=== PATIENT | male | born 1985 | race Two or more races ===

== ENCOUNTER 2025-05-15 14:22 | Outpatient (CLI) | payer SELFPAY | END 2025-05-15 14:23 | disposition home or self-care (01) | LOC: AMB 05-16 15:19 | PROVIDERS: Visit Provider Family Medicine | DX: S09.90XA Unspecified injury of head, initial encounter (principal); S39.92XA Unspecified injury of lower back, initial encounter; V54.5XXA Driver of pick-up truck or van injured in collision with heavy transport vehicle or bus in traffic accident, initial encounter; Y92.410 Unspecified street and highway as the place of occurrence of the external cause | CPT/HCPCS: A0425; A0427 ==

== ENCOUNTER 2025-05-15 15:00 | Emergency (ER) | payer SELFPAY ==
[2025-05-15 15:07] VITALS: BP 115/74; PULSE 86; RESP 16; TEMP 36.6; O2SAT 96; BMI 18.2
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
--- OUTSIDE RECORDS SUMMARY | 2025-05-15 16:58 | XMS_ITS | Clinical Summary ---
Author Organization [facility] Address [address] [place] [id number] Care Team Providers Care Director It Project Name Role Phone No Ref-Primary, Physician Primary Care Provider Allergies No known active allergies Medications tenofovir (VIREAD) 300 MG tabletIndicatio ns:Chronic hepatitis B without delta agent with hepatic coma (H) Take 1 tablet (300 mg) by mouth daily 90 tablet 3 6 Active Additional Information Patient not taking.Reported on 10/18/2019 cyclobenzaprine (FLEXERIL) 5 MG tabletIndicatio ns:Muscle spasm Take 1-2 tablets (5-10 mg) by mouth 3 times daily as needed for muscle spasms 30 tablet 1 9 Active Additional Information Patient not taking.Reported on 12/13/2019 ibuprofen (ADVIL/MOTRIN) 600 MG tabletIndicatio ns:Cervicalgia, Acute pain of right shoulder,Right elbow pain,Acute bilateral low back pain without sciatica Take 1 tablet (600 mg) by mouth every 6 hours as needed for moderate pain 40 tablet 1 9 Active Active Problems Problem Noted Date Diagnosed Date Chronic viral hepatitis B wi thout delta agent and without coma 09/16/2015 Hepatitis B 03/24/2015 Torticollis 11/29/2014 Overview (11/29/2014): improved, banadryl prn helps Jaundice 11/20/2014 Abnormal LFTs 11/20/2014 Hepatitis 11/20/2014 Family History Medical History Relation Comments Diabetes No family hx of Social History Tobacco Use Types Packs/Day Years Used Date Smoking Tobacco: Never Smokeless Tobacco: Never Alcohol Use Standard Drinks/Week Comments No 0 (1 standard drink = 0.6 oz pur e alcohol) PHQ-2 Answer Date Recorded PHQ-2 Score 0 08/25/2020 Adolescent Education Answer Date Record ed Getting School Help Needed Not on file 08/09 Sex and Gender Information Value Date Recorded Sex Assigned at Not on file Legal 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 Gender Identity Not on file Sexual Orientation Not on file Last Filed Vital Signs Vital Sign Reading Time Taken Comments Blood Pressure 95/66 12/13/2019 8:58 AM TECHNICAL ENGINEER Pulse 68 12/13/2019 8:58 AM TECHNICAL ENGINEER Temperature 36.6 C (97.8 F) 12/13/2019 8:58 AM TECHNICAL ENGINEER Respiratory Rate 16 12/27/2018 5:42 PM TECHNICAL ENGINEER Oxygen Saturation 95% 12/13/2019 8:58 AM TECHNICAL ENGINEER Inhaled Oxygen Concentration - - Weight 53.7 kg (118 lb 6.4 oz) 12/13/2019 8:58 A M TECHNICAL ENGINEER Height 175.3 cm (5' 9) 12/13/2019 8:58 AM TECHNICAL ENGINEER Body Mass Index 17.48 12/13/2019 8:58 AM TECHNICAL ENGINEER Plan of Treatment Not on file [facility] [place] [id number] none (Work) [address] [facility] [address] [address] [place] [address] [facility] [employer] Advance Directives For more information, please contact: [phone] * Full Code (Latest Code Status on File) Date Activated Date Inactivated Comments 11/24/2014 10:06 AM 12/27/2018 5:37 PM * Full Code Date Activated Date Inactivated Comments 11/20/2014 8:42 PM 11/24/2014 10:06 AM Care Teams Director It Project Relationship Specialty Start Date End Date No Ref-Primary, Physician PCP - General 09/20/13
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
--- OUTSIDE RECORDS SUMMARY | 2025-05-16 10:12 | XMS_ITS | Clinical Summary ---
Author Organization [facility] Address [address] [place] [address] Care Team Providers Care Rn Baby Name Role Phone Pcp, No Primary Care [...] on file Legal Sex Male 2:55 PM RUG MEASURER Gender Identity Not on file Sexual Orientation Not on file Last Filed Vital Signs Vital Sign Reading Time Taken Comments Blood Pressure 104/61 10/14/2019 3:25 PM RUG MEASURER Pulse 94 10/14/2019 3:25 PM RUG MEASURER Temperature 36.9 C (98.4 F) 10/14/2019 3:25 PM RUG MEASURER Respiratory Rate 16 10/14/2019 3:25 PM RUG MEASURER Oxygen Saturation 97% 10/14/2019 3:25 PM RUG MEASURER Inhaled Oxygen Concentration - - Weight 59 kg (130 lb) 10/14/2019 3:25 PM RUG MEASURER Height 172.7 cm (5' 8) 10/14/2019 3:25 PM RUG MEASURER Body Mass Index 19.77 10/14/2019 3:25 PM RUG MEASURER Plan of Treatment Not on file Insurance [facility] [employer] Care Teams Rn Baby Relationship Specialty Start Date End Date Pcp, No . PCP - General 10/14/19
--- OUTSIDE RECORDS SUMMARY | 2025-05-16 10:13 | XMS_ITS | Clinical Summary ---
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 SUPERVISOR Gender Identity Not on file Sexual Orientation Not on file Last Filed Vital Signs Vital Sign Reading Time Taken Comments Blood Pressure 95/66 12/13/2019 8:58 AM JOINT SUPERVISOR Pulse 68 12/13/2019 8:58 AM JOINT SUPERVISOR Temperature 36.6 C (97.8 F) 12/13/2019 8:58 AM JOINT SUPERVISOR Respiratory Rate 16 12/27/2018 5:42 PM JOINT SUPERVISOR Oxygen Saturation 95% 12/13/2019 8:58 AM JOINT SUPERVISOR Inhaled Oxygen Concentration - - Weight 53.7 kg (118 lb 6.4 oz) 12/13/2019 8:58 A M JOINT SUPERVISOR Height 175.3 cm (5' 9) 12/13/2019 8:58 AM JOINT SUPERVISOR Body Mass Index 17.48 12/13/2019 8:58 AM JOINT SUPERVISOR Plan of Treatment Not on file Insurance [facility] [place] [id number] none (Work) [address] [facility] [address] [address] [place] [address] [facility] [employer] Advance Directives For more information, please contact: [phone] * Full Code (Latest Code Status on File) Date Activated Date Inactivated Comments 11/24/2014 10:06 AM 12/27/2018 5:37 PM * Full Code Date Activated Date Inactivated Comments 11/20/2014 8:42 PM 11/24/2014 10:06 AM Care Teams Maple Products Maker Relationship Specialty Start Date End Date No Ref-Primary, Physician PCP - General 09/20/13
== END 2025-05-15 17:03 | disposition home or self-care (01) ==
LOC: ED 05-16 10:10
PROVIDERS: Emergency Provider Student in an Organized Health Care Education/Training Program
DX: S39.012A Strain of muscle, fascia and tendon of lower back, initial encounter (principal)
CPT/HCPCS: 70450; 72125; 72131; 73030; 73080; 99284